=== PATIENT | male | born 1945 | race Caucasian/White ===

== ENCOUNTER 2017-03-12 17:57 | Observation (INO) | payer OTHER ==
--- NOTE | 2017-03-12 18:28 | EDPHY ---
H & P Stated Complaint: 1 yr increasing confusion/seeing neurologist who sent him for cat scan Time Seen by Provider: 03/12/17 18:09 HPI/ROS: CHIEF COMPLAINT: Confusion, memory problems. HISTORY OF PRESENT ILLNESS: The patient is a 72-year-old male who presents with a history of one year of memory problems, gradually worseing, who developed significantly worse confusion last night around 1800. He had an MRI a year ago that showed multiple micro hemorrhages as well as amyloid deposition. Family was made aware the patient was made aware that he may be developing dementia. Last night his memory worsened significantly. His daughter reports he was talking about a and children he does not have and got into a person's car he is unfamiliar with on the way to worship. He denies headache, abdominal pain, nausea, vomiting. He is oriented to place. He believes it is 01/11/2017 and springtime. He answers other questions about himself very slowly and with difficulty. No fever, chills, chest pain, shortness of breath, palpitations, vomiting, diarrhea, urinary complaints, headache, lightheadedness. He has been followed by Dr. Meyer, neurology, and last saw her mid-February. REVIEW OF SYSTEMS: Aside from elements discussed in the HPI, a comprehensive 10-point review of systems was reviewed and is negative. PAST MEDICAL HISTORY: Nonsmoker, no alcohol use, no marijuana use. SOCIAL HISTORY: Hindu. VITAL SIGNS: Reviewed by me GENERAL: Well-developed, well-nourished, resting comfortably in no respiratory distress. HEENT: Atraumatic. Eyes: No icterus, no injection. Mouth: moist mucous membranes. No erythema or lesions. Neck: supple with no adenopathy. LUNGS: Clear to auscultation bilaterally, no wheezes, rhonchi or rales. CARDIAC: Regular rate and rhythm, no rubs, murmurs or gallops. ABDOMEN: Soft, nontender, nondistended, bowel sounds normal. BACK: No CVA tenderness. EXTREMITIES: No trauma. No edema. Range of motion is normal throughout. NEURO: Alert and oriented to self and place. Cranial nerves II through XII are intact. Motor strength 5 over 5 in all major muscle groups. Sensation intact to light touch. Negative finger to nose test on right. Difficulty with finger to nose on left. Patient can name 2 of 3 objects correctly, struggles to find the name of a dock in a picture. Serial sevens normal x4 SKIN: Warm and dry, no rash. PSYCHIATRIC: Normal mentation, no agitation. Portions of this note were transcribed by a medical review coordinator. I personally performed a history, physical exam, medical decision making, and confirmed accuracy of information the transcribed note. Source: Patient Exam Limitations: No limitations - Personal History Current Tetanus/Diphtheria Vaccine: Yes - Medical/Surgical History Hx Asthma: No Hx Chronic Respiratory Disease: No Hx Diabetes: No Hx Cardiac Disease: No Hx Renal Disease: No Hx Cirrhosis: No Hx Alcoholism: No Hx HIV/AIDS: No Hx Splenectomy or Spleen Trauma: No Other PMH: denies - Social History Smoking Status: Never smoked Constitutional: Initial Vital Signs Temperature (C) 36.8 C 03/12/17 18:05 Heart Rate 62 03/12/17 18:05 Respiratory Rate 18 03/12/17 18:05 Blood Pressure 187/92 H 03/12/17 18:05 O2 Sat (%) 96 03/12/17 18:05 O2 Delivery Mode Room Air Allergies/Adverse Reactions: No Known Allergies Allergy (Unverified 03/12/17 18:01) Home Medications: Medication Instructions Recorded Atorvastatin Calcium [Lipitor 20 20 mg PO DAILY 03/12/17 mg (*)] Prochlorperazine Maleate 10 mg PO DAILY PRN 03/12/17 [Compazine 10mg (*)] Propranolol HCl [Inderal LA 120mg] 120 mg PO DAILY 03/12/17 Tamsulosin HCl [Flomax 0.4 MG (*)] 0.4 mg PO DAILY 03/12/17 Medical Decision Making - Diagnostics EKG Interpretation: 12-LEAD EKG: Please see the full report in [facility]. My interpretation: Normal sinus rhythm, no acute ST or T wave changes. Imaging Results: Imaging Impressions Head CT 03/12/17 18:35 Impression: 1. Elderly brain with atrophy and probable white matter small vessel disease. 2. 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 3. Pansinusitis. Results called and discussed with Callie Hale MD on 03/12/2017 at 19:04 Imaging: Discussed imaging studies w/ online editor Radiologist ED Course/Re-evaluation: 72-year-old male presents with one year of memory issues that acutely worsened last night. On exam he does have a small amount of difficulty with the left finger to nose test. He has obvious word-finding difficulties. He is not oriented to the season or the date. His daughter reports these are worse than they have been over the past year. An IV was established and labs ordered. Head CT ordered to rule out acute intracranial process. 1904: CT results conveyed to me by Dr. Ford, radiology, as atrophy but no acute processes. MRI from one year ago shows amyloid deposits suggestive of Alzheimer' s and numerous small bleeds. I reviewed the patient's laboratory studies. Troponin elevated at 0.054. 1916: Reassessed patient at this time. EKG ordered. He has no previous cardiac history, however his physician did recommend he stop taking his Aspirin two weeks ago secondary to concerns regarding micro hemorrhages visible on the MRI. 1927: Consulted with Dr. Aljeandro, hospitalist. He accepts admission. Patient will be admitted to the hospital for further evaluation of his elevated troponin, as well as further assessment of the patient's safety at home, he is currently living independently, and further evaluation as indicated for his dementia. Differential Diagnosis: After the history was obtained and physical exam performed, the following differential for the patient's history of acute altered mental status was considered included but was not limited to hypoglycemia, electrolyte disturbances, intracranial hemorrhage, tumor, drug or alcohol intoxication, stroke, or TIA. Consult/Admit Bed Type: Dr. Demian Alejandro, med surg - Data Points Laboratory Results: Laboratory Results 03/12/17 18:30 03/12/17 18:30 03/12/17 03/12/17 18:30 18:30 WBC 6.94 10^3/uL 10^3/uL (3.80-9.50) RBC 4.80 10^6/uL 10^6/uL (4.40-6.38) Hgb 15.2 g/dL g/dL (13.7-17.5) Hct 45.0 % % (40.0-51.0) MCV 93.8 fL fL (81.5-99.8) MCH 31.7 pg pg (27.9-34.1) MCHC 33.8 g/dL g/dL (32.4-36.7) RDW 13.4 % % (11.5-15.2) Plt Count 162 10^3/uL 10^3/uL (150-400) MPV 10.8 fL fL (8.7-11.7) Neut % (Auto) 53.9 % % (39.3-74.2) Lymph % (Auto) 29.0 % % (15.0-45.0) [place] % (Auto) 10.5 % % (4.5-13.0) Eos % (Auto) 5.0 % % (0.6-7.6) Baso % (Auto) 1.2 % % (0.3-1.7) Nucleat RBC Rel Count 0.0 % % (0.0-0.2) Absolute Neuts (auto) 3.74 10^3/uL 10^3/uL (1.70-6.50) Absolute Lymphs (auto) 2.01 10^3/uL 10^3/uL (1.00-3.00) Absolute Monos (auto) 0.73 10^3/uL 10^3/uL (0.30-0.80) Absolute Eos (auto) 0.35 10^3/uL 10^3/uL (0.03-0.40) Absolute Basos (auto) 0.08 10^3/uL 10^3/uL (0.02-0.10) Absolute Nucleated RBC 0.00 10^3/uL 10^3/uL (0-0.01) Immature Gran % 0.4 % % (0.0-1.1) Immature Gran # 0.03 10^3/uL 10^3/uL (0.00-0.10) Sodium 142 mEq/L mEq/L (134-144) Potassium 4.8 mEq/L mEq/L (3.5-5.2) Chloride 109 mEq/L mEq/L (97-110) Carbon Dioxide 21 mEq/l L mEq/l (22-31) Anion Gap 12 mEq/L mEq/L (8-16) BUN 15 mg/dL mg/dL (7-23) Creatinine 0.8 mg/dL mg/dL (0.7-1.3) Estimated GFR > 60 Glucose 117 mg/dL H mg/dL (70-100) Calcium 9.0 mg/dL mg/dL (8.5-10.4) Troponin I 0.054 ng/mL H ng/mL (0-0.034) Specimen Hemolysis 102 Departure - Departure Disposition: [facility] Acute Clinical Impression: Confusion, Memory loss, Elevated troponin Condition: Fair Report Scribed for: Callie Hale Report Scribed by: Baldev Francisco Date of Report: 03/12/17 Time of Report: 18:10
[2017-03-12 18:39] LABS: % IMMATURE GRANULYOCYTES 0.4 % (0.0-1.1); ABSOLUTE IMMATURE GRANULOCYTES 0.03 10^3/uL (0.00-0.10); ADD DIFF? NO; ADD MORPH? NO; ADD SCAN? NO; ATYPICAL LYMPHOCYTE FLAG 0 (0-99); FRAGMENT RBC FLAG 0 (0-99); HEMOGLOBIN 15.2 g/dL (13.7-17.5); LEFT SHIFT FLG 0 (0-99); LIPEMIA HEMOLYSIS FLAG 90 (0-99); MEAN CELL HEMOGLOBIN 31.7 pg (27.9-34.1); MEAN CELL HEMOGLOBIN CONCENTR. 33.8 g/dL (32.4-36.7); MEAN CELL VOLUME 93.8 fL (81.5-99.8); MEAN PLATELET VOLUME 10.8 fL (8.7-11.7); PLATELET CLUMPS FLAG 10 (0-99); PLATELET COUNT 162 10^3/uL (150-400); RED CELL DISTRIBUTION WIDTH 13.4 % (11.5-15.2)
[2017-03-12 18:51] LABS: ANION GAP 12 mEq/L (8-16); CARBON DIOXIDE 21 mEq/l (22-31); CHLORIDE 109 mEq/L (97-110); CREATININE 0.8 mg/dL (0.7-1.3); GLOMERULAR FILTRATION RATE > 60; GLUCOSE 117 mg/dL (70-100); POTASSIUM 4.8 mEq/L (3.5-5.2); SODIUM 142 mEq/L (134-144); SPECIMEN HEMOLYSIS 102
[2017-03-12 19:03] LABS: TROPONIN I 0.054 ng/mL (0-0.034)
--- NOTE | 2017-03-12 19:23 | CPEKG ---
Heart Rate: 66 RR Interval: 909 P-R Interval: 184 QRSD Interval: 98 QT Interval: 428 QTC Interval: 449 P [place]: 38 QRS [place]: 18 T Wave [place]: 30 EKG Severity - BORDERLINE ECG - EKG Impression: SINUS RHYTHM EKG Impression: BORDERLINE INFERIOR Q WAVES Electronically Signed By: Callie Hale 13-Mar-2017 00:23:18
[2017-03-12 19:49] LABS: COLOR PALE YELLOW; LEUKOCYTE ESTERASE,URINE NEGATIVE (NEGATIVE); NITRITE,URINE NEGATIVE (NEGATIVE)
[2017-03-12] MEDS ORDERED: ONDANSETRON DISINTEGRATING 4 MG TAB PO PRN (23:09)
[2017-03-12] MEDS ORDERED: ACETAMINOPHEN 325 MG TAB PO PRN (23:09)
[2017-03-12] MEDS ORDERED: ONDANSETRON 4 MG/2 ML VIAL IVP PRN (23:09)
--- NOTE | 2017-03-12 23:20 | PDGENHP ---
History and Physical - Chief Complaint Confusion - History of Present Illness Mr. Mark Johnson is a 72 yo M w/ HTN and MCI/dementia brought to ED today by daughter after experiencing increased confusion from baseline yesterday. Daughter describes steady decline in function over the last year. Patient handles most own ADLs but more recently has been having difficulty with iADLs, especially paying bill and driving at night. He has gotten lost while driving on a couple of occasions. Daughter states that yesterday patient seemed more confused than usual. She called the patient's neurologist, who recommended the come in for evaluation. Laboratory evaluation in the ED essentially unremarkable. Upon my evaluation, Mr. Johnson denies any complaints, including chest pain, SOB, and all infectious symptoms. History Information - Allergies/Home Medication List Allergies/Adverse Reactions: No Known Allergies Allergy (Unverified 03/12/17 18:01) Home Medications: Atorvastatin Calcium [Lipitor 20 mg (*)] 20 mg PO DAILY 03/12/17 [Last Taken 09/27] Prochlorperazine Maleate [Compazine 10mg (*)] 10 mg PO DAILY PRN 03/12/17 [Last Taken 03/11/17] Propranolol HCl [Inderal LA 120mg] 120 mg PO DAILY 03/12/17 [Last Taken 03/12/17 ] Tamsulosin HCl [Flomax 0.4 MG (*)] 0.4 mg PO DAILY 03/12/17 [Last Taken 03/12/17 ] I have personally reviewed and updated: family history, medical history - Past Medical History hypertension - Surgical History Reports: spinal surgery - Family History Positive for: cancer (Dementia in both sisters, possibly father) - Social History Smoking Status: Never smoked Alcohol Use: None Review of Systems ROS: 10pt was reviewed & negative except for what was stated in HPI & below Physical Exam Temp Pulse Resp BP Pulse Ox 36.8 C 55 L 20 170/97 H 97 03/12/17 18:05 03/12/17 22:10 03/12/17 22:10 03/12/17 22:10 03/12/17 22:10 Constitutional: no apparent distress, appears nourished Eyes: PERRL, EOMI Ears, Nose, Mouth, Throat: moist mucous membranes, no oral mucosal ulcers Cardiovascular: regular rate and rhythym, no murmur, rub, or gallop Respiratory: no respiratory distress, clear to auscultation Gastrointestinal: normoactive bowel sounds, soft, non-tender abdomen Skin: warm, no rashes or abrasions Musculoskeletal: full muscle strength, no muscle tenderness Neurologic: AAOx3, sensation intact bilaterally, CN II-XII Intact, other ( Cerebellar function intact), No weakness, No numbness, No pronator drift, No facial droop Psychiatric: interacting appropriately, not anxious Lab Data & Imaging Review 03/12/17 18:30 03/12/17 18:30 WBC 6.94 10^3/uL (3.80-9.50) 03/12/17 18:30 RBC 4.80 10^6/uL (4.40-6.38) 03/12/17 18:30 Hgb 15.2 g/dL (13.7-17.5) 03/12/17 18:30 Hct 45.0 % (40.0-51.0) 03/12/17 18:30 MCV 93.8 fL (81.5-99.8) 03/12/17 18:30 MCH 31.7 pg (27.9-34.1) 03/12/17 18:30 MCHC 33.8 g/dL (32.4-36.7) 03/12/17 18:30 RDW 13.4 % (11.5-15.2) 03/12/17 18:30 Plt Count 162 10^3/uL (150-400) 03/12/17 18:30 MPV 10.8 fL (8.7-11.7) 03/12/17 18:30 Neut % (Auto) 53.9 % (39.3-74.2) 03/12/17 18:30 Lymph % (Auto) 29.0 % (15.0-45.0) 03/12/17 18:30 [place] % (Auto) 10.5 % (4.5-13.0) 03/12/17 18:30 Eos % (Auto) 5.0 % (0.6-7.6) 03/12/17 18:30 Baso % (Auto) 1.2 % (0.3-1.7) 03/12/17 18:30 Nucleat RBC Rel Count 0.0 % (0.0-0.2) 03/12/17 18:30 Absolute Neuts (auto) 3.74 10^3/uL (1.70-6.50) 03/12/17 18:30 Absolute Lymphs (auto) 2.01 10^3/uL (1.00-3.00) 03/12/17 18:30 Absolute Monos (auto) 0.73 10^3/uL (0.30-0.80) 03/12/17 18:30 Absolute Eos (auto) 0.35 10^3/uL (0.03-0.40) 03/12/17 18:30 Absolute Basos (auto) 0.08 10^3/uL (0.02-0.10) 03/12/17 18:30 Absolute Nucleated RBC 0.00 10^3/uL (0-0.01) 03/12/17 18:30 Immature Gran % 0.4 % (0.0-1.1) 03/12/17 18:30 Immature Gran # 0.03 10^3/uL (0.00-0.10) 03/12/17 18:30 Sodium 142 mEq/L (134-144) 03/12/17 18:30 Potassium 4.8 mEq/L (3.5-5.2) 03/12/17 18:30 Chloride 109 mEq/L (97-110) 03/12/17 18:30 Carbon Dioxide 21 mEq/l (22-31) L 03/12/17 18:30 Anion Gap 12 mEq/L (8-16) 03/12/17 18:30 BUN 15 mg/dL (7-23) 03/12/17 18:30 Creatinine 0.8 mg/dL (0.7-1.3) 03/12/17 18:30 Estimated GFR > 60 03/12/17 18:30 Glucose 117 mg/dL (70-100) H 03/12/17 18:30 Calcium 9.0 mg/dL (8.5-10.4) 03/12/17 18:30 Troponin I 0.054 ng/mL (0-0.034) H 03/12/17 18:30 Specimen Hemolysis 102 03/12/17 18:30 Urine Color PALE YELLOW 03/12/17 19:36 Urine Appearance CLEAR 03/12/17 19:36 Urine pH 6.0 (5.0-7.5) 03/12/17 19:36 Ur Specific [place] 1.005 (1.002-1.030) 03/12/17 19:36 Urine Protein NEGATIVE (NEGATIVE) 03/12/17 19:36 Urine Ketones NEGATIVE (NEGATIVE) 03/12/17 19:36 Urine Blood NEGATIVE (NEGATIVE) 03/12/17 19:36 Urine Nitrate NEGATIVE (NEGATIVE) 03/12/17 19:36 Urine Bilirubin NEGATIVE (NEGATIVE) 03/12/17 19:36 Urine Urobilinogen NEGATIVE EU (0.2-1.0) 03/12/17 19:36 Ur Leukocyte Esterase NEGATIVE (NEGATIVE) 03/12/17 19:36 Urine RBC 1-3 /hpf (0-3) 03/12/17 19:36 Urine WBC 1-3 /hpf (0-3) 03/12/17 19:36 Ur Epithelial Cells NONE SEEN /lpf (NONE-1+) 03/12/17 19:36 Urine Glucose NEGATIVE (NEGATIVE) 03/12/17 19:36 Imaging Review: CT Head with atrophy but no acute findings. Visualized and Interpreted EKG results: Yes EKG Interpretation: Positive for: normal sinsus rhythm (No acute ischemic changes) Assessment & Plan Assessment: 72 yo M w/ HTN and MCI/dementia brought to ED by daughter after being more confused than usual on day prior to admission; evaluation upon arrival with no acute findings. Plan: 1. Confusion - Suspect this merely represents a "bad day" in what patient's daughter describes as a cycle of good and bad days, with a continual yet mild decline in cognitive function over the last year. History, examination, laboratory work-up, and imaging without acute findings. Per daughter, patient currently at his cognitive baseline. Neurology consulted for further recs. 2. MCI/Dementia - Patient has experienced slow but steady cognitive decline over the last few years. This was especially brought to light after the loss of his of 52 years in October of 2014. Patient still performs all ADLs but struggles with iADLs. He has good social support nearby but still lives alone. Review of previous records shows B12 and TSH recently WNL, so will not recheck. Will consult SW and CM to provide resources to patient and family. Neurology also consulted for further recs. 3. HTN - Poorly controlled while here, seems to only be on propanolol as outpatient. Will treat with PRN's overnight if SBP >200. 4. Indeterminate troponin - Perhaps related to poorly controlled BP. Patient denies all symptoms no hx of CAD. ECG with no ischemic changes, will not trend. Diet - Regular Code - Full Ppx - LMWH Dispo - Admit to OBS; suspect will be able to d/c tomorrow after neurology and CM/SW consultations
[2017-03-12] MEDS: hydrALAZINE 25 MG TAB PO PRN (23:47)
--- NOTE | 2017-03-13 08:29 | HOSPPROG ---
Hospitalist Progress Note Assessment/Plan: The patient is a 72-year-old male with a history of hypertension, dementia was brought to the emergency room by his daughter for increased confusion from his baseline. I reviewed his laboratory data which is essentially stable except for elevated troponin. Today is my 1st encounter with the patient chart reviewed. Discussed his care with Dr. David Lawson. * confusion with underlying dementia suspect he is getting worsening dementia * dementia with cognitive decline/Alzheimer type reviewed his care w ST/ has sig cognitive issues can not be driving concerned he is not able to care for himself * hypertension 161/99 will follow and trend * indeterminate troponin no chest pain nothing noted acute on ECG *Plan: patient lives alone,cont to drive, get groceries, etc. Concerned he could hurt himself or someone w driving/ he is unaware of his limitations/gait is unsteady per nursing staff. He is not ready for dc and will need a higher level of care/ he will be IP status. Subjective: Mark says he feels fine/wants to go home. Objective: Vital Signs Temp Pulse Resp BP Pulse Ox 36.5 C 55 L 20 161/99 H 94 03/13/17 07:32 03/13/17 07:32 03/13/17 07:32 03/13/17 07:32 03/13/17 07:32 03/12/17 03/13/17 03/14/17 05:59 05:59 05:59 Intake Total 250 Balance 250 - Physical Exam Constitutional: no apparent distress, appears nourished Eyes: PERRL Ears, Nose, Mouth, Throat: hearing normal Cardiovascular: regular rate and rhythym Respiratory: no respiratory distress Gastrointestinal: normoactive bowel sounds Skin: warm Musculoskeletal: generalized weakness Neurologic: other (alert and oriented to place,time,person, doesn't clearly understand the situation) Psychiatric: interacting appropriately ICD10 Worksheet Patient Problems: Problems Problem Status Onset Confusion Acute Elevated troponin Acute Memory loss Acute
[2017-03-13] MEDS ORDERED: PROPRANOLOL HCL 120 MG PO SCH (09:00)
[2017-03-13] MEDS ORDERED: TAMSULOSIN HCL 0.4 MG CAP PO SCH ×2 (09:00→17:00)
[2017-03-13] MEDS ORDERED: ENOXAPARIN 40 MG/0.4 ML SYR SC SCH (09:00)
[2017-03-13] MEDS ORDERED: PROPRANOLOL SR 60 MG CAP PO SCH (09:00)
[2017-03-13] MEDS ORDERED: ATORVASTATIN CALCIUM 20 MG TAB PO SCH (09:00)
--- NOTE | 2017-03-13 11:11 | GCON ---
[f rep st] CONSULTATION NEUROLOGIC CONSULTATION. REFERRING PHYSICIAN: Fareed Way MD HISTORY: The patient is a 72-year-old gentleman whom I am asked to see in neurologic consultation r egarding cognitive loss and relatively significant change in the last day or so beyond his baseline. He has an evolution of cognitive loss over the last year or so and still has been living independen [facility] but getting some support from family. He moved from [place] to be near his daughter, he says . He is currently in the room by himself. When he came to the hospital yesterday afternoon it was re portedly because he had talked to Dr. Meyer and she advised him to go to the hospital for evaluatio n because of worsening in his memory. Apparently he was talking about his and 2 children that smiley gagnon does not have and even got into a car with someone he was not familiar with on his way to going to mus[place]. He is not complaining of any focal numbness, weakness, headaches, or fever or chills. REVIEW OF SYSTEMS: A 10-point review of systems is completed and unremarkable except for that noted above. No clear-cut exacerbating or alleviating factors. The problem has been getting progressively worse gradually but particularly worse 2 nights ago. The cognitive impairment fluctuates a little b ut is certainly present every day, as best as I can ascertain. PAST MEDICAL HISTORY: Hypertension. PAST SURGICAL HISTORY: He has a history of spinal surgery. FAMILY HISTORY: Reported history of dementia in 2 sisters and maybe his father. History of cancer. SOCIAL HISTORY: No smoking. No alcohol use. He is a . MEDICATIONS: Tylenol, Lovenox, Zofran, Inderal, tamsulosin. ALLERGIES: None. PHYSICAL EXAM: VITAL SIGNS: Temperature 36.5, blood pressure 160/99, pulse of 55, respirations 20. GENERAL: He is a well-developed older man, sitting up in the chair, in no acute distress. NECK: Supp le with no bruits or masses. CARDIAC: Regular rate and rhythm with no murmur. EXTREMITIES: No cyanos is or edema. NEUROLOGIC: He is awake and alert, fairly attentive but easily distracted. Speaks predo minantly in a superficial fashion with basic social conversation but tends to confabulate, sometimes perseverate and has very limited insight. He is oriented to the year and knows he is in the hospita l. Knows his name but he is not oriented to the month or the season. He says he is in [facility]. Recent and remote memory are both impaired. Attention span and concentration are diminished. Language skills are diminished with a tendency to have some word-finding problem and some persevera tion and not of normal fluency to his language. The general fund of knowledge is also reduced signif icantly. I performed mini-mental status testing and he scored 17/30. When asked who the president is he said, "it changes all the time." He could not name the president. He often gives tangential or n onsensical answers to questions. He demonstrates some word-finding difficulties. For example, I aske d him to name a watch and he said, "It's a time telling device." He was only able to name 7 animals in 1 minute. Pupils are 3 mm and reactive. Extraocular movements are intact. Funduscopic exam is nor mal. No visual field loss. Extraocular movements are intact with normal facial sensation and strengt h. Palate elevates symmetrically. Tongue protrudes midline. Hearing is preserved. No weakness of hea d turning or shoulder shrug. Motor exam reveals normal muscle bulk and tone with 5/5 strength and no abnormal movements. Sensation is preserved for temperature and light touch. Reflexes are 1+. No daniel xic movements in the upper extremities. No pathologic reflexes. I have reviewed his testing results showing a nonspecific atrophy on the head CT and small vessel di sease but nothing else more specific. LABORATORY STUDIES: Normal CBC. Troponin slightly elevated at 0.054. Urinalysis unremarkable. IMPRESSION: The patient has clinical features consistent with dementia, most likely of the Alzheime r's type. The evolution has apparently been over the last year and this relative worsening in the la st 48 hours is not clearly associated with an acute neurologic event such as stroke. No metabolic dy sfunction is identified or infection. I do not believe this is related to medication. It is not enti rely clear why there was some relative change. However, I do not know him very well and how far off he is at the moment from his baseline will need the input from his daughter. I will try to reach her as well. It would be appropriate for him to have full assessment for safety at home. My general imp ression is that living independently is probably not safest for him and at least some level of regul ar attendant or even a residential facility or memory care unit should be considered as this is likely to be a progressive disorder and he is already showing poor insight and judgment which could lead to significant risks to him. Use of medication for Alzheimer disease should also be considered, but I will defer to Dr. Meyer for ongoing care as well as working with his primary care, Dr. Sara cuevas. If there are any other questions feel free to contact me. He has already had an appropriate work up in the past for dementia and apparently nothing was clearly identified although some changes of a myloid angiopathy or thought to perhaps be present on an old MRI but I do not have that actual repor t. I agree that case management needs to be involved with full discussions with his daughter on stra tegies moving forward. /[id number]/MODL
[2017-03-13 11:32] VITALS: BP 173/105; PULSE 51; RESP 18; TEMP 97.9; O2SAT 97
[2017-03-13] MEDS: hydrALAZINE 25 MG TAB PO PRN (11:55)
--- NOTE | 2017-03-13 13:25 | PDIAF ---
- Diagnosis Diagnosis: dementia/poss alzheimers Code Status: Full Code - Medication Management Discharge Medications: Medications to Continue on Transfer Atorvastatin Calcium [Lipitor 20 mg (*)] 20 mg PO DAILY 03/12/17 [Last Taken 09/27] Prochlorperazine Maleate [Compazine 10mg (*)] 10 mg PO DAILY PRN 03/12/17 [Last Taken 03/11/17] Propranolol HCl [Inderal LA 120mg] 120 mg PO DAILY 03/12/17 [Last Taken 03/12/17 ] Tamsulosin HCl [Flomax 0.4 MG (*)] 0.4 mg PO DAILY 03/12/17 [Last Taken 03/12/17 ] Discharge Medications: Refer to the Discharge Home Medication list for PRN reason. - Orders Services needed: Home Care, Registered Nurse, Master Set Up Inspector, Physical Therapy, Occupational Therapy, Speech Language Pathologist Home Care Face to Face: I certify that this patient was under my care and that I had the required [id number] encounter meeting the encounter requirements on the discharge day. My findings support the fact that the patient is homebound as defined in CMS Chapter 7 Medicare Benefits Manual 30.1.1, The condition of the patient is such that there exists a normal inability to leave home and consequently, leaving home would require a considerable and taxing effort. Diet Recommendation: low fiber Diet Texture: Regular Texture Diet Additional: NO driving/ patient should be provided with meals/ he will need a higher level of care - Follow Up Care Current Providers and Referrals: [place] Reyes MD [Primary Care Provider] - As per Instructions
--- NOTE | 2017-03-13 20:22 | GDS ---
[f rep st] DISCHARGE SUMMARY DISCHARGE DIAGNOSES: 1. Dementia, concern for Alzheimer's. 2. Confusion that has been worsening. 3. Hypertension. 4. Indeterminate troponins. CONSULTATIONS DURING STAY: David Lawson MD BRIEF HISTORY: The patient is a 72-year-old gentleman who was brought in because he has had increas ing cognitive loss over the last day or so beyond his baseline. Per his daughter, he has had increa sed cognitive loss over the past year and is still living independently by getting good support from his daughter. He moved from the [place] area to be close to his daughter. He sees his neurolo gist Dr. Meyer, and she recommended to get to the hospital for further evaluation because of worsen ing memory. Per his daughter, he has been getting lost after he is driving places and has gone the wrong way on the street. He had a CT of his head which showed small-vessel disease but nothing more specific. The plan is for him to be discharged home. He will get home care. His daughter will ch erika on him closely. She is going to arrange for a higher level of care. He has been instructed to not drive in the future or ever. His daughter is aware of this, and she will take away his car keys . HOSPITAL COURSE: 1. Confusion, with underlying dementia: I suspect that his dementia is worsening. 2. Dementia with cognitive decline, Alzheimer-type: Have requested that PT, RN, speech therapy, an d occupational therapy see him. His daughter said overall he has been doing well at home but knows that he needs more help. 3. Hypertension: Blood pressure was elevated this morning. 4. Indeterminate troponin. No chest pain. He had nothing acute noted on his ECG. DISCHARGE CONDITION: Stable. Blood pressure is 173/105 heart rate is 51 respiratory rate is 18, O2 sat's on room air are 97%, temperature is 36.6 Celsius. MEDICATIONS AT DISCHARGE: Please see the EMR. DISCHARGE INSTRUCTIONS: 1. To follow up with his primary care provider in regard to his elevated blood pressure. 2. To consider starting Namenda or Aricept, per his neurologist. /[id number]/MODL
== END 2017-03-13 14:42 | disposition home health service (06) ==
LOC: F3E 22:15 → INTOOBSV 03-13 11:45 → OBSVTOIN 03-13 11:45
PROVIDERS: ADMIT Internal Medicine; ATTEND Internal Medicine
DX: G30.9 Alzheimer's disease, unspecified (principal); F02.80 Dementia in other diseases classified elsewhere, unspecified severity, without behavioral disturbance, psychotic disturbance, mood disturbance, and anxiety; I10 Essential (primary) hypertension
CPT/HCPCS: 70450; 92523; 93005; 97161; 97166; 99285; G0378; G8978; G8979; G8980; G8987; G8988; G9168; G9169; J1650

== ENCOUNTER 2017-04-01 13:13 | Emergency (ER) | payer OTHER ==
[2017-04-01] MEDS ORDERED: TDAP ADULT 0.5 ML INJ (BOOSTRIX) IM ONE (15:43)
--- NOTE | 2017-04-01 16:32 | EDPHY ---
H & P Stated Complaint: Lacs L hand--mechanical fall this am no other injuires - Personal History Current Tetanus/Diphtheria Vaccine: No Current Tetanus Diphtheria and Acellular Pertussis (TDAP): No Tetanus Vaccine Date: 2006 - Medical/Surgical History Hx Asthma: No Hx Chronic Respiratory Disease: No Hx Diabetes: No Hx Cardiac Disease: No Hx Renal Disease: No Hx Cirrhosis: No Hx Alcoholism: No Hx HIV/AIDS: No Hx Splenectomy or Spleen Trauma: No Other PMH: denies - Social History Smoking Status: Never smoked Time Seen by Provider: 04/01/17 15:45 HPI/ROS: Chief complaint: Left 3rd and 4th finger lacerations History of present illness: This is a 72-year-old male who presents to the emergency department for evaluation and treatment of a left 3rd and 4th finger laceration. Earlier today he tripped on the sidewalk and fell forward striking his hand against the sidewalk. He sustained the lacerations at that time. Since then he has had some pain in the region. Minimal bleeding that has been controlled with a dressing. He is having difficulty moving the fingers. He denies other associated signs or symptoms including no abnormal coolness or reported paresthesias in the finger. No other trauma reported. He does state this was a trip and fall, there was no preceding events such as dizziness, lightheadedness etc. He is unsure of when he had his last tetanus shot. (Honorio Downing) - Physical Exam Exam: General: Alert, nontoxic Skin: There are 2 cm lacerations that are horizontally oriented over the flexor surface of the proximal 3rd and 4th fingers, exploration does not reveal foreign bodies. Musculoskeletal: Patient is having difficulty flexing his left 3rd and 4th finger in the PIP joint, he is able to flex in the DIP joint, he can extend the PIP and PIP joint of listed fingers. He is moving the other fingers and wrist well. Vascular: Capillary refill is brisk in the affected digits. It is brisk in all digits of the left hand. Radial pulse 2 +. Neurologic: Sensation intact using light touch and two-point discrimination in the injured fingers. (Honorio Downing) Constitutional: Initial Vital Signs Temperature (C) 37.0 C 04/01/17 13:17 Heart Rate 59 L 04/01/17 13:17 Respiratory Rate 16 04/01/17 13:17 Blood Pressure 146/80 H 04/01/17 13:17 O2 Sat (%) 97 04/01/17 13:17 O2 Delivery Mode Room Air Allergies/Adverse Reactions: No Known Allergies Allergy (Unverified 03/12/17 18:01) Home Medications: Medication Instructions Recorded Atorvastatin Calcium [Lipitor 20 20 mg PO DAILY 03/12/17 mg (*)] Prochlorperazine Maleate 10 mg PO DAILY PRN 03/12/17 [Compazine 10mg (*)] Propranolol HCl [Inderal LA 120mg] 120 mg PO DAILY 03/12/17 Tamsulosin HCl [Flomax 0.4 MG (*)] 0.4 mg PO DAILY 03/12/17 Cephalexin [Keflex] 500 mg PO TID 5 Days 04/01/17 Medical Decision Making - Diagnostics Imaging: I viewed and interpreted images myself - Diagnostics Imaging Results: Imaging Impressions Hand X-Ray 04/01/17 16:02 Impression: 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 Age indeterminate fracture at the base of the middle phalanx of the third digit. Results called and discussed with Honorio Downing PA-C on April 01, 2017 at 1658 hours. Procedures: Procedure: Laceration repair. Verbal consent was obtained from the patient. The 2 cm laceration on the left 3rd finger was anesthetized in the usual fashion. The wound was irrigated, draped and explored to its base with a gloved finger. There were no deep structures involved. No tendon injury was identified. The wound was repaired with 5 0 Ethilon, 9 simple interrupted sutures. The wound repair was simple. The procedure was performed by myself. Procedure: Laceration repair. Verbal consent was obtained from the patient. The 2 cm laceration on the left 4th finger was anesthetized in the usual fashion. The wound was irrigated, draped and explored to its base with a gloved finger. There were no deep structures involved. No tendon injury was identified. The wound was repaired with 5 0 Ethilon, 9 simple interrupted sutures. The wound repair was simple. The procedure was performed by myself. Procedure: Splint placement. A volar wrist and finger splint was applied. After application of the splint I returned and re-examined the patient. The splint was adequately immobilizing the joint and distal to the splint the patient's circulation and sensation was intact. (Honorio Downing) ED Course/Re-evaluation: Patient is discussed with my secondary supervising physician Dr. Kishan Coker. Patient presents to the emergency department for evaluation of lacerations to his left 3rd and 4th finger. The fingers are neurovascularly intact. He is having difficulty flexing them. X-rays obtained, questionable fracture. Wounds are anesthetized, cleaned and explored. I am able to visualize the flexor tendons and I do not appreciate injury. I have consulted with hand surgery, Dr. Eva Ayala. He is comfortable with patient being primarily closed in the emergency room, splinted and started on antibiotics and discharged to the follow up in his clinic. This is performed. Home care is discussed with patient and family. Return precautions are given. (Honorio Downing) Differential Diagnosis: Included but not limited to laceration, deep structure injury including tendon, nerve or bony injury, foreign body contamination (Honorio Downing) Other Provider: Personally seen; confirmed history that he has subjective difficulty with flexion. Warned patient and daughter of the possibility of flexor tendon laceration and need for subsequent operative repair despite no laceration definitively visualized in ED. Discussed with hand surgeon by Chang, recommended closure/splint/antibiotics/office followup. I am the secondary supervising physician. (Kishan Coker) - Data Points Medications Given: Discontinued Medications Cephalexin HCl (Keflex) 500 mg PO EDNOW ONE PRN Reason: Protocol Stop: 04/01/17 17:28 Last Admin: 04/01/17 17:32 Dose: 500 mg Diphtheria/Tetanus/Acell Pertussis (Boostrix) 0.5 ml IM .ONCE ONE Stop: 04/01/17 15:44 Last Admin: 04/01/17 15:49 Dose: 0.5 ml Departure - Departure Disposition: Home, Routine, Self-Care Clinical Impression: Hand laceration Qualifiers: Encounter type: initial encounter Foreign body presence: without foreign body Condition: Good Instructions: Care For Your Stitches (ED), Laceration (ED), Acute Wounds (ED) Additional Instructions: Follow-up with Hand surgery this week for continued evaluation and care Please discuss with surgery when stitches need to come out, in general they should come out in 7-10 days As discussed you may need further treatment including surgery for treatment of your injuries Take antibiotics as prescribed until finished even if feeling well If symptoms worsen or new symptoms develop return to the emergency room for recheck Referrals: Uday Reyes DO [Primary Care Provider] - As per Instructions Eva Ayala MD [Medical Doctor] - As per Instructions Prescriptions: Cephalexin [Keflex] 500 mg PO TID 5 Days
[2017-04-01] MEDS ORDERED: CEPHALEXIN 500 MG CAP PO ONE (17:27)
[2017-04-01 18:29] VITALS: TEMP 97.7
[2017-04-01 19:27] VITALS: BP 187/103; PULSE 65; RESP 16; O2SAT 94
== END 2017-04-01 19:27 | disposition home or self-care (01) ==
PROC: 0HQGXZZ Repair Left Hand Skin, External Approach (ICD-10-PCS; principal; 2017-04-01)
DX: S61.213A Laceration without foreign body of left middle finger without damage to nail, initial encounter (principal); S61.215A Laceration without foreign body of left ring finger without damage to nail, initial encounter; Z23 Encounter for immunization; W01.118A Fall on same level from slipping, tripping and stumbling with subsequent striking against other sharp object, initial encounter; Y92.480 Sidewalk as the place of occurrence of the external cause; Y99.8 Other external cause status

== ENCOUNTER → 2018-08-31 | Outpatient (CLI) | payer OTHER | LOC: FIMAGING 09:21 | PROVIDERS: ATTEND Nurse Practitioner Family | DX: M79.641 Pain in right hand (principal); W19.XXXA Unspecified fall, initial encounter ==

== ENCOUNTER 2018-11-25 05:18 | Emergency (ER) | payer OTHER ==
--- NOTE | 2018-11-25 05:52 | EDPHY ---
H & P Stated Complaint: fall, head LAC Time Seen by Provider: 11/25/18 05:24 HPI/ROS: Chief Complaint: Fall, scalp laceration HPI: 73-year-old male who has a history of advanced dementia, resides in a memory care unit. Patient rolled out of bed this morning and struck his head on the side table. Unknown if he had a loss of consciousness. Patient did sustain a laceration and his right parietal region. He is brought in for evaluation. Patient does have a [place] MOST form indicating comfort measures only. Patient's daughter is at the bedside and she is indicating that she does want wound care but does not interested in having CT scanning or any other imaging done. Patient is A& O x1 at baseline. He is currently at his baseline. ROS: 10 systems were reviewed and were negative except those elements noted in the HPI. PMH: Dementia Social History: No smoking, no alcohol, no recreational drug use Family History: non-contributory Physical Exam: Gen: Awake, Alert, Airway Intact HEENT: Head: 1.5 cm cruciate laceration on the right parietal region, no bony tenderness or crepitus Eyes: PERRLA, EOMI Nose: No epistaxis Mouth: Normal dentition, Airway patent Face: No deformity Neck: non-tender, no stepoff, Full ROM without pain Chest: non-tender, lungs CTA Heart: normal heart tones Abd: soft, non-tender, atraumatic Pelvis: non-tender, stable to AP and Lateral compression Back: atraumatic, no midline tenderness Ext: atramatic, full ROM Skin: no rash Neuro: CN II-XII intact, Strength 5/5 in all extremities, sensation intact in all extremities - Personal History Tetanus Vaccine Date: 2006 - Medical/Surgical History Hx Asthma: No Hx Chronic Respiratory Disease: No Hx Diabetes: No Hx Cardiac Disease: No Hx Renal Disease: No Hx Cirrhosis: No Hx Alcoholism: No Hx HIV/AIDS: No Hx Splenectomy or Spleen Trauma: No Other PMH: denies - Social History Smoking Status: Never smoked Constitutional: Initial Vital Signs Temperature (C) 36.4 C 11/25/18 05:33 Heart Rate 67 11/25/18 05:33 Respiratory Rate 18 11/25/18 05:33 Blood Pressure 189/96 H 11/25/18 05:33 O2 Sat (%) 96 11/25/18 05:33 O2 Delivery Mode Room Air Allergies/Adverse Reactions: No Known Allergies Allergy (Unverified 11/25/18 05:33) Home Medications: Medication Instructions Recorded Atorvastatin Calcium [Lipitor 20 20 mg PO DAILY 03/12/17 mg (*)] Prochlorperazine Maleate 10 mg PO DAILY PRN 03/12/17 [Compazine 10mg (*)] Propranolol HCl [Inderal LA 120mg] 120 mg PO DAILY 03/12/17 Tamsulosin HCl [Flomax 0.4 MG (*)] 0.4 mg PO DAILY 03/12/17 Cephalexin [Keflex] 500 mg PO TID 5 Days cap 04/01/17 Medical Decision Making Procedures: Procedure: Laceration repair. Verbal consent was obtained from the patient. The 1.5 cm laceration on the right parietal scalp was anesthetized in the usual fashion. The wound was irrigated, draped and explored to its base with a gloved finger. There were no deep structures involved. No tendon injury was identified. The wound was repaired with 3 maykel. The wound repair was uncomplicated. The procedure was performed by myself. ED Course/Re-evaluation: 73-year-old male with advanced dementia with scalp laceration after falling out of bed. Daughter is at the bedside. She does not want any further evaluation after wound care and I feel this is appropriate. Lacerations been repaired by me. He will be discharged back to his half-way facility. Departure - Departure Disposition: Home, Routine, Self-Care Clinical Impression: Scalp laceration Condition: Good Instructions: Laceration (ED), Staple Care (ED) Additional Instructions: Maykel need to be removed in 10 days. Referrals: Erinn Aceves MD [Primary Care Provider] - As per Instructions
[2018-11-25 06:40] VITALS: BP 146/89
== END 2018-11-25 06:40 | disposition home or self-care (01) ==
LOC: EDUNIT#
PROC: 0HQ0XZZ Repair Scalp Skin, External Approach (ICD-10-PCS; principal; 2018-11-25)
DX: S01.01XA Laceration without foreign body of scalp, initial encounter (principal); W06.XXXA Fall from bed, initial encounter; Y92.122 Bedroom in nursing home as the place of occurrence of the external cause

== ENCOUNTER 2019-01-09 18:39 | Emergency (ER) | payer OTHER | END 2019-01-09 19:23 | disposition home or self-care (01) ==

== ENCOUNTER 2019-01-31 18:16 | Emergency (ER) | payer OTHER | END 2019-01-31 21:39 | disposition home or self-care (01) ==